=== PATIENT | male | born 1960 | race Caucasian/White ===

== ENCOUNTER 2021-07-26 13:28 | Emergency (ER) | payer OTHER ==
[~2021-07-26] VITALS: Ht 172.7 cm; Wt 84.4 kg
[2021-07-26] MEDS ORDERED: NYSTATIN 100000 UNIT/ML 5ML UDCUP PO SCH (14:30)
[2021-07-26] MEDS ORDERED: IBUPROFEN 100 MG/5 ML SUSP UDCUP PO ONE (14:30)
[2021-07-26] MEDS ORDERED: NYST5ORA7 PO (15:11)
[2021-07-26 16:02] VITALS: BP 161/60
== END 2021-07-26 16:02 | disposition home or self-care (01) ==
LOC: EDH 13:28
DX: B37.0 Candidal stomatitis (principal); Z20.822 Contact with and (suspected) exposure to COVID-19; F32.A Depression, unspecified; I10 Essential (primary) hypertension
CPT/HCPCS: 87635; 87804 ×2; 87880; 99283; C9803